=== PATIENT | male | born 1970 | race Caucasian/White ===

== ENCOUNTER 2016-06-12 18:25 | Emergency (ER) | payer SELFPAY ==
[~2016-06-12 18:25] MED LIST: ACID CONTROL150 M2 PO; ADVIL200 M2 PO; CYCLOBENZAPRINE10 M1 PO; IBUPROFEN600 M1 PO; NEURONTIN300 M1 PO; NORCO 5-325 TA1 EACH PO; PREDNISONE10 M1 PO; PRILOSEC OTC20 M1 PO; RANITIDINE
[2016-06-12] MEDS ORDERED: NORCO 5-325 TA1 EACH PO (18:57)
[2016-11-29] MEDS ORDERED: DICLOFENAC POTA50 M1 PO (12:54)
[2016-11-29] MEDS ORDERED: MEDROL4 M2 PO (12:54)
[2016-11-29] MEDS ORDERED: CYCLOBENZAPRINE10 M1 PO (12:54)
== END 2016-06-12 19:15 ==
LOC: EDMED 18:25
DX: S39.011A Strain of muscle, fascia and tendon of abdomen, initial encounter (principal); F17.200 Nicotine dependence, unspecified, uncomplicated; X58.XXXA Exposure to other specified factors, initial encounter

== ENCOUNTER 2016-08-13 09:00 | Emergency (ER) | payer SELFPAY ==
[2016-08-13 09:58] LABS: BASO % 0.5 % (0-2); EOS % 3.5 % (0-7); EOSINOPHIL ABSOLUTE COUNT 0.2 tho/cmm (0.0-0.7); HCT-HEMATOCRIT 40.6 % (36.0-53.5); HGB-HEMOGLOBIN 13.9 gm/dl (13.5-17.0); LYMPH ABSOLUTE COUNT 1.6 tho/cmm (0.8-4.5); MCH (MEAN CORPUSCULAR HGB) 30.2 pg (28.0-32.0); MCHC MEAN CORPUSCULAR HGB CONC 34.2 % (32.0-36.0); MCV (MEAN CELL VOLUME) 88.3 fl (82.0-96.0); MEAN PLATELET VOLUME 9.5 cmc (9.4-12.4); MONO % 4.8 % (0-12); MONOCYTE ABSOLUTE COUNT 0.3 tho/cmm (0.0-1.2); NEUTROPHIL ABSOLUTE COUNT 3.9 tho/cmm (1.6-8.0); NEUTROPHIL-AUTOMATED 3.9 tho/cmm (1.6-8.0); NEUTROPHILS % 65.2 % (40-80); PLATELET COUNT 200 tho/cmm (150-450)
[2016-08-13 10:16] LABS: ANION GAP 10 mmol/L (0-20); BLOOD UREA NITROGEN 15 mg/dl (6-24); CALCIUM 8.2 mg/dl (8.5-10.5); CARBON DIOXIDE-VENOUS 24 mmol/L (22-32); CHLORIDE 112 mmol/l (96-110); CREATININE 0.84 mg/dl (0.60-1.30); GLUCOSE 91 mg/dL (70-110); POTASSIUM 4.1 mmol/L (3.7-5.1); SODIUM 142 mmol/L (135-145); eGFR VALUE FOR BLACK >90 mL/Min
[2016-08-13 10:18] LABS: CREATINE PHOSPHOKINASE (CPK) 242 U/L (35-232)
[2016-08-13] MEDS ORDERED: NORCO 5-325 TA1 EACH PO (10:40)
[2016-11-29] MEDS ORDERED: MEDROL4 M2 PO (12:54)
[2016-11-29] MEDS ORDERED: DICLOFENAC POTA50 M1 PO (12:54)
[2016-11-29] MEDS ORDERED: CYCLOBENZAPRINE10 M1 PO (12:54)
== END 2016-08-13 10:45 ==
LOC: EDMED 09:00
PROVIDERS: Emergency Medicine
PROC: 2W3EXYZ Immobilization of Right Hand using Other Device (ICD-10-PCS; principal; 2016-08-13)
DX: S76.011A Strain of muscle, fascia and tendon of right hip, initial encounter (principal); G56.01 Carpal tunnel syndrome, right upper limb; K21.9 Gastro-esophageal reflux disease without esophagitis; F17.200 Nicotine dependence, unspecified, uncomplicated; X58.XXXA Exposure to other specified factors, initial encounter; Y92.009 Unspecified place in unspecified non-institutional (private) residence as the place of occurrence of the external cause